=== PATIENT | female | born 1970 | race Caucasian/White ===

== ENCOUNTER 2016-09-13 20:01 | Inpatient (IN) | payer BC, OTHER ==
--- NOTE | 2016-09-13 20:22 | ED ---
General Adult HPI - General Chief complaint: Alcohol Stated complaint: ETOH Time Seen by Provider: 09/13/16 20:06 Source: patient, EMS, RN notes reviewed Mode of arrival: EMS Limitations: no limitations - History of Present Illness Initial comments: 38-year-old female presenting for acute alcohol intoxication. Patient is awake and alert but not forthcoming with much information. She does admitting to drinking alcohol today. She states she is not a daily drinker but she had "a bad day." She denies any active suicidal or homicidal ideations, however she does state she has worsening depression. She denies any chest pain or shortness of breath. She denies any abdominal pain. He denies any fevers or chills. - Related Data Home Medications Medication Instructions Recorded Confirmed Atorvastatin [Lipitor] 20 mg PO DAILY 09/13/16 09/13/16 Losartan [Cozaar] 50 mg PO DAILY 09/13/16 09/13/16 Allergies Allergy/AdvReac Type Severity Reaction Status Date / Time No Known Allergies Allergy Verified 09/13/16 20:48 Review of Systems ROS Statement: Those systems with pertinent positive or pertinent negative responses have been documented in the HPI. ROS Other: All systems not noted in ROS Statement are negative. Past Medical History Past Medical History: Hypertension, Seizure Disorder Additional Past Medical History / Comment(s): SEIZURE DUE TO ETOH IN PAST History of Any Multi-Drug Resistant Organisms: None Reported Past Surgical History: Breast Surgery, Tubal Ligation Additional Past Surgical History / Comment(s): AUGMENTATION Past Anesthesia/Blood Transfusion Reactions: No Reported Reaction Past Psychological History: Anxiety Smoking Status: Current every day smoker Past Alcohol Use History: Abuse Additional Past Alcohol Use History / Comment(s): pt states she drinks a fifth of vodka daily Past Drug Use History: None Reported General Exam - General Exam Comments Initial Comments: General: Awake and Alert. No acute distress. Does not appear acutely ill. Patient is acutely intoxicated. Eyes: KIM, EOM intact. No nystagmus. No scleral icterus. HENT: Atraumatic, normocephalic. Mucous membranes moist. Trachea midline. Neck: The neck is supple, there is no tenderness or JVD. Cardiovascular: Regular rate and rhythm. No murmur, rub, or gallop is appreciated. Distal pulses intact. Respiratory: Lungs are clear to auscultation bilaterally. No wheezes, rales, rhonchi. No respiratory distress. Gastrointestinal: Soft, Nontender. No rebound or guarding. Non-distended. No masses or organomegaly noted. No CVA tenderness. Musculoskeletal: No tenderness. Normal ROM. No gross deformity. No strength deficits. Neurological: A&Ox3. CN II-XII grossly intact, There are no obvious motor or sensory deficits. Coordination appears grossly intact. Speech is normal. Skin: Skin is warm and dry and no rashes or lesions are noted. Psychiatric: Cooperative, depressed affect. Limitations: no limitations Course Vital Signs 09/13/16 09/13/16 20:15 21:55 Temperature 97.6 F 98.0 F Pulse Rate 115 H 106 H Respiratory 16 20 Rate Blood Pressure 156/94 159/94 O2 Sat by Pulse 95 96 Oximetry EKG Findings - EKG Comments: EKG Findings:: EKG 21:53. Sinus rhythm. Rate 114. Normal axis. Nonspecific T wave changes. No STEMI. Abnormal EKG. Medical Decision Making - Medical Decision Making 46-year-old female presenting for acute alcohol intoxication and depression. Pt poor historian on exam secondary to acute intoxication. Labs with stable CBC. Patient with hypernatremia likely secondary to chronic alcohol abuse. Serum alcohol is 416. Due to significant serum alcohol level plan for admission for IV fluids and further monitoring for acute alcohol poisoning. I spoke with Dr. Newby, agrees with plan for admission. - Lab Data Result diagrams: 09/13/16 20:12 09/13/16 20:12 Lab Results 09/13/16 09/13/16 Range/Units 20:12 20:12 WBC 9.2 (3.8-10.6) k/uL RBC 4.53 (3.80-5.40) m/uL Hgb 14.3 (11.4-16.0) gm/dL Hct 43.5 (34.0-46.0) % MCV 96.0 (80.0-100.0) fL MCH 31.6 (25.0-35.0) pg MCHC 32.9 (31.0-37.0) g/dL RDW 12.8 (11.5-15.5) % Plt Count 233 (150-450) k/uL Neutrophils % 45 % Lymphocytes % 43 % Monocytes % 6 % Eosinophils % 2 % Basophils % 1 % Neutrophils # 4.1 (1.3-7.7) k/uL Lymphocytes # 3.9 (1.0-4.8) k/uL Monocytes # 0.6 (0-1.0) k/uL Eosinophils # 0.2 (0-0.7) k/uL Basophils # 0.1 (0-0.2) k/uL Sodium 147 H (137-145) mmol/L Potassium 4.3 (3.5-5.1) mmol/L Chloride 111 H (98-107) mmol/L Carbon Dioxide 20 L (22-30) mmol/L Anion Gap 16 mmol/L BUN 13 (7-17) mg/dL Creatinine 0.60 (0.52-1.04) mg/dL Est GFR (MDRD) Af Amer >60 (>60 ml/min/1.73 sqM) Est GFR (MDRD) Non-Af >60 (>60 ml/min/1.73 sqM) Glucose 97 (74-99) mg/dL Calcium 9.0 (8.4-10.2) mg/dL Total Bilirubin 0.4 (0.2-1.3) mg/dL AST 32 (14-36) U/L ALT 32 (9-52) U/L Alkaline Phosphatase 79 (38-126) U/L Total Protein 7.6 (6.3-8.2) g/dL Albumin 4.5 (3.5-5.0) g/dL Serum Alcohol 416 mg/dL - EKG Data -: EKG Interpreted by Ri EKG shows normal: sinus rhythm Rate: tachycardia Disposition Clinical Impression: Alcohol poisoning, Alcohol abuse, Hypernatremia Disposition: ADMITTED IP TO THIS HOSP Condition: Stable Decision to Admit Reason: Admit from EC
[2016-09-13 20:28] LABS: Basophils # (A) 0.1 k/uL (0-0.2); Basophils % (A) 1 %; CH 32.1; CHCM 33.6; Eosinophils # (A) 0.2 k/uL (0-0.7); Eosinophils % (A) 2 %; HCT 43.5 % (34.0-46.0); HGB 14.3 gm/dL (11.4-16.0); Luc # (Auto) 0.36; Luc % (Auto) 4; Lymphocytes # (A) 3.9 k/uL (1.0-4.8); Lymphocytes % (A) 43 %; MCH 31.6 pg (25.0-35.0); MCHC 32.9 g/dL (31.0-37.0); Mean Platelet Volume 7.1; Monocytes # (A) 0.6 k/uL (0-1.0); Monocytes % (A) 6 %; Neutrophils # (A) 4.1 k/uL (1.3-7.7); Neutrophils % (A) 45 %; RBC 4.53 m/uL (3.80-5.40); RDW 12.8 % (11.5-15.5); WBC 9.2 k/uL (3.8-10.6); WBC (Perox) 8.92
[2016-09-13 20:44] LABS: ALT 32 U/L (9-52); AST 32 U/L (14-36); Alkaline Phosphatase 79 U/L (38-126); Anion Gap 16 mmol/L; Blood Urea Nitrogen 13 mg/dL (7-17); Carbon Dioxide 20 mmol/L (22-30); Chloride 111 mmol/L (98-107); Glucose 97 mg/dL (74-99); Non-African American GFR(MDRD) >60 (>60 ml/min/1.73 sqM); Potassium 4.3 mmol/L (3.5-5.1); Sodium 147 mmol/L (137-145); Total Bilirubin 0.4 mg/dL (0.2-1.3); Total Protein 7.6 g/dL (6.3-8.2)
[2016-09-13 20:52] LABS: Alcohol 416 mg/dL
[2016-09-13] MEDS ORDERED: SODIUM CHLORIDE 0.9% 1,000 ML IV ONE (21:05)
[2016-09-13] MEDS ORDERED: SODIUM CHLORIDE 0.9% 1,000 ML IV STA (21:05)
[2016-09-13] MEDS ORDERED: THIAMINE 100 MG/ML 2 ML VIAL IVP STA (21:11)
[2016-09-13] MEDS ORDERED: FOLIC ACID-VIT B COMPLEX-VIT C 1 CAP PO STA (21:11)
[2016-09-13] MEDS ORDERED: NALOXONE 0.4 MG/ML 1 ML VIAL IV PRN (21:27)
[2016-09-13] MEDS ORDERED: ONDANSETRON 4 MG/2 ML VIAL IVP PRN (21:27)
[2016-09-13] MEDS ORDERED: LORazepam 2 MG/ML SYRINGE IV PRN ×3 (21:29)
[2016-09-13 23:34] VITALS: BP 159/97; PULSE 113; RESP 16; TEMP 97.9
[2016-09-13] MEDS ORDERED: HYDROcodone/APAP 5-325MG 1 EACH TAB PO PRN (23:53)
[2016-09-13] MEDS ORDERED: TEMAZEPAM 15 MG CAP PO PRN (23:53)
[2016-09-13] MEDS ORDERED: HYDROmorphone 1 MG/ML 1 ML SYRINGE IVP PRN (23:53)
[2016-09-14] MEDS ORDERED: HEPARIN SODIUM,PORCINE 5,000 UNIT/ML 1 ML VIAL SQ SCH
[2016-09-14] MEDS ORDERED: LORazepam 1 MG TAB PO PRN (00:17)
[2016-09-14] MEDS ORDERED: PANTOPRAZOLE 40 MG/10 ML VIAL IV SCH (09:00)
[2016-09-14] MEDS ORDERED: THIAMINE 100 MG/ML 2 ML VIAL IVP SCH (09:00)
[2016-09-14] MEDS ORDERED: ATORVASTATIN 20 MG TAB PO SCH (09:00)
[2016-09-14] MEDS ORDERED: LOSARTAN 50 MG TAB PO SCH (09:00)
[2016-09-14] MEDS ORDERED: MULTIVITAMINS, THERA 1 EACH TAB PO SCH (12:00)
[2016-09-14] MEDS ORDERED: FOLIC ACID-VIT B COMPLEX-VIT C 1 CAP PO SCH (12:00)
--- NOTE | 2016-09-14 13:20 | HP ---
DATE OF ADMISSION: DATE OF SERVICE: 09/13/2016 The chief complaint is acute alcohol intoxication. HISTORY OF PRESENT ILLNESS: This 46-year-old woman with a past medical history of multiple medical problems including recurrent alcohol, essential hypertension, seizure disorder, history of delirium tremens, history of anxiety, being followed by Dr. Harjeet Palomares in the outpatient setting is apparently drinking heavily. Patient also has history of smoking. Patient apparently went to multiple rehabs previously, the last one apparently was in [place]. The patient was not very forthcoming with questions but the patient was found to have alcohol level 416 in the ER and patient admitted for further evaluation and treatment. The patient is highly emotional at this time. There is no history of any trauma. No history of any headache, loss of consciousness or seizures. PAST MEDICAL HISTORY: History of alcohol intake, history of seizure disorder, anxiety, depression, history of nicotine dependence. Medications prior to admission include: 1. Lipitor 20 mg daily. 2. Cozaar 50 mg daily. Allergies are none. FAMILY HISTORY: History of hypertension in the family. SOCIAL HISTORY: History of alcohol and smoking as mentioned previously. REVIEW OF SYSTEMS: ENT: No diminished vision or diminished hearing. CARDIOVASCULAR: No angina. RESPIRATORY: As mentioned earlier. GI: As mentioned earlier. : No dysuria. NERVOUS SYSTEM: No numbness or weakness. MUSCULOSKELETAL: As mentioned earlier. HEMATOLOGY: No history of anemia. ENDOCRINE: No history of diabetes or hypothyroidism. CONSTITUTIONAL: As mentioned earlier. DERMATOLOGY: Negative. RHEUMATOLOGY: Negative. PSYCHIATRY: As mentioned earlier. PHYSICAL EXAMINATION: Alert and oriented x3. Pulse is 106, blood pressure 159/97, respirations 16, temperature is 97.8, pulse ox is 98% on room air. HEENT: Conjunctivae normal. NECK: No jugular venous distension. CARDIOVASCULAR SYSTEM: S1, S2, muffled. RESPIRATORY: Breath sounds diminished at the bases. A few scattered rhonchi and no crackles. Abdomen is soft, nontender. No mass palpable. LEGS: No edema, no swelling. NERVOUS SYSTEM: Higher functions as mentioned earlier, moves all 4 limbs. Minimal tremors present. No focal motor deficits. LYMPHATICS: No lymph node enlargement in the neck, axilla or groin. SKIN: No ulcers, rash or bleeding. Labs are CBC within normal limits, sodium 147, CO2 is 20. Alcohol level 416. ASSESSMENT: 1. Acute alcohol intoxication. 2. Anxiety, depression, not otherwise specified. 3. Hyponatremia secondary to dehydration. 4. History of delirium tremens. 5. History of nicotine dependence. 6. History of depression. 7. Anxiety. 8. History of hypertension. 9. History of seizure disorder. 10. FULL CODE. RECOMMENDATION: In this 46-year-old woman who presented with multiple complex medical issues, will monitor the patient closely, continue with the current medications, continue with the symptomatic treatment. Initiate CIWA protocol. Otherwise, continue with . See orders for the details. Psychiatry consultation. Guarded prognosis because of multiple complex medical issues. Further recommendations to follow. A copy of this will be forwarded to Dr. Harjeet Palomares who is the primary physician. Prognosis guarded. The patient's alcohol level is extremely high. MTDD
--- NOTE | 2016-09-18 15:51 | DS ---
DATE OF ADMISSION: 09/13/2016 DATE OF DISCHARGE: 09/14/2016 FINAL DIAGNOSES: 1. Acute alcohol intoxication. 2. Anxiety, depression not otherwise specified. 3. Hypernatremia secondary to dehydration. 4. History of delirium tremens. 5. History of nicotine dependence. 6. History of depression. 7. Anxiety not otherwise specified. 8. History of hypertension. 9. History of seizure disorder. 10. FULL CODE. DISCHARGE DISPOSITION: Patient left the hospital AGAINST MEDICAL ADVICE. HISTORY OF PRESENT ILLNESS: This 46-year-old woman with a past medical history of multiple medical problems, being followed by Dr. Zak Palomares in the outpatient setting, was admitted with alcohol intoxication and other multiple medical problems; however, the patient was not willing to stay. The patient left the hospital AGAINST MEDICAL ADVICE. Please refer to the nurse's notes and progress note and ER notes for further details. Prognosis remained extremely guarded throughout the hospital stay. Apparently the patient's family is coming to get the patient.
== END 2016-09-14 01:15 | disposition left against medical advice (07) | DRG 894 ==
LOC: EC 20:01 → 5MS5E 21:30
PROVIDERS: ADMIT Hospitalist; ATTEND Hospitalist
DX: F10.129 Alcohol abuse with intoxication, unspecified (principal); E87.0 Hyperosmolality and hypernatremia; G40.509 Epileptic seizures related to external causes, not intractable, without status epilepticus; E86.0 Dehydration; F17.200 Nicotine dependence, unspecified, uncomplicated; F32.9 Major depressive disorder, single episode, unspecified; F41.9 Anxiety disorder, unspecified; I10 Essential (primary) hypertension; Z79.899 Other long term (current) drug therapy; Z82.49 Family history of ischemic heart disease and other diseases of the circulatory system; Y90.8 Blood alcohol level of 240 mg/100 ml or more
CPT/HCPCS: 36415; 80053; 80320; 85025; 93005; 96361; 96374; 99285

== ENCOUNTER → 2018-09-21 | Outpatient (CLI) | payer BC ==
[2018-09-21 17:26] LABS: Albumin 4.7 g/dL (3.80-4.90); Albumin/Globulin Ratio 1.88 (1.60-3.17); Anion Gap 5.4 mmol/L (4.00-12.00); Calcium 9.8 mg/dL (8.7-10.3); Carbon Dioxide 25.6 mmol/L (21.6-31.8); Globulin 2.5 g/dL (1.6-3.3); LDL Cholesterol,Calculated 102.6 mg/dL (0.0-131.0); Potassium 4.9 mmol/L (3.5-5.5); Total Bilirubin 1.3 mg/dL (0.3-1.2); Total Protein 7.2 g/dL (6.2-8.2); VLDL Calculation 18.4 mg/dL (5.00-40.00)
[2018-09-21 17:33] LABS: T4, Free (Free Thyroxine) 1.5 ng/dL (0.80-1.80)
== END ==
LOC: LABWHC1 10:07
PROVIDERS: ATTEND Internal Medicine
DX: Z00.00 Encounter for general adult medical examination without abnormal findings (principal); E66.9 Obesity, unspecified; R53.83 Other fatigue
CPT/HCPCS: 36415; 80053; 80061; 84439; 84443

== ENCOUNTER → 2020-07-07 | Outpatient (CLI) | payer BC ==
[2020-07-07 10:32] LABS: ALT 32 U/L (4-34); AST 46 U/L (14-36); African American GFR (CKD) >90 (>60 ml/min/1.73 sqM); Albumin 4.5 g/dL (3.5-5.0); Albumin/Globulin Ratio 1.6; Alkaline Phosphatase 67 U/L (38-126); Anion Gap 8 mmol/L; Bilirubin,Unconjugated 1.6 mg/dL (0.0-1.1); Blood Urea Nitrogen 11 mg/dL (7-17); Carbon Dioxide 27 mmol/L (22-30); Chloride 102 mmol/L (98-107); Cholesterol 178 mg/dL (<200); Globulin 2.9 g/dL; Glucose 99 mg/dL (74-99); HDL Cholesterol 89 mg/dL (40-60); LDL Cholesterol,Calculated 76 mg/dL (0-99); Non-African American GFR(CKD) >90 (>60 ml/min/1.73 sqM); Potassium 4.3 mmol/L (3.5-5.1); Sodium 137 mmol/L (137-145); Total Bilirubin 1.6 mg/dL (0.2-1.3); Total Protein 7.4 g/dL (6.3-8.2); Triglycerides 65 mg/dL (<150)
[2020-07-07 18:11] LABS: Cyclic Citrull Pep IgG Unit <0.5 U/mL; Cyclic Citrullinated Pep IgG NEGATIVE (NEGATIVE)
[2020-07-08 00:44] LABS: Rheumatoid Factor, Qnt 6 IU/mL (0-15)
[2020-07-10 16:46] LABS: Hepatitis A Antibody IgM Non-Reactive (Non-Reactive); Hepatitis B Core IgM Non-Reactive (Non-Reactive); Hepatitis B Surface Antigen Non-Reactive (Non-Reactive); Hepatitis C IgG Antibody Non-Reactive (Non-Reactive)
== END | disposition home or self-care (01) ==
LOC: LABWHC1 08:40
PROVIDERS: ATTEND Internal Medicine
DX: Z00.00 Encounter for general adult medical examination without abnormal findings (principal); E78.5 Hyperlipidemia, unspecified; I10 Essential (primary) hypertension; M79.643 Pain in unspecified hand
CPT/HCPCS: 36415; 80051; 80061; 80074; 80076; 82565; 82947; 84520; 85652; 86200; 86431